=== PATIENT | female | born 1985 | race Asian ===

== ENCOUNTER 2022-12-11 09:15 | Outpatient (CLI) | payer OTHER, SELFPAY | END 2022-12-11 09:16 | disposition home or self-care (01) | LOC: FBOREF 09:16 | PROVIDERS: PCP Family Medicine; Visit Provider Family Medicine | DX: R53.83 Other fatigue (principal); R35.1 Nocturia; E66.01 Morbid (severe) obesity due to excess calories | CPT/HCPCS: 81001; 84443 ==

== ENCOUNTER 2023-01-09 10:38 | Outpatient (CLI) | payer OTHER, SELFPAY | END 2023-01-09 10:39 | disposition home or self-care (01) | PROVIDERS: PCP Family Medicine; Visit Provider Family Medicine | DX: R11.2 Nausea with vomiting, unspecified (principal); R19.7 Diarrhea, unspecified | CPT/HCPCS: 80053; 85025 ==

== ENCOUNTER 2023-01-29 19:28 | Outpatient (CLI) | payer OTHER, SELFPAY ==
--- NOTE | 2023-02-05 12:15 | W.PM.SLEEP ---
Sleep Study Details Details Interpreting Provider: Yoan Date of Sleep Study: 01/29/23 Sleep Study Details: STUDY TYPE:? Home unattended ? BMI:? 65.2 ORDERING PROVIDER:? Mallika INDICATION:? Concerns about sleep apnea ? SLEEP SUMMARY:? 136 minutes monitored RESPIRATORY SUMMARY:? AHI is 89.5. There was minimal difference between supine and left lateral positions Low oxygen 70 51.6% of study oxygen less than 90% Snoring 41.5% PERIODIC LIMB MOVEMENTS OF SLEEP:? Not recorded during home study CARDIAC:? Range 59-1 awake, mean 77.5 beats per minute IMPRESSION:? Severe obstructive sleep apnea with severe hypo oxygenation RECOMMENDATION: In-lab titration study as this patient may well require advancement to bilevel pressure. If AutoSet CPAP is chosen, the patient should have an overnight oximetry once effective therapy is established to ensure there is no requirement for nighttime oxygen.
== END 2023-01-29 19:29 | disposition home or self-care (01) ==
LOC: SLEEP 19:30
PROVIDERS: PCP Family Medicine; Visit Provider Family Medicine
DX: G47.33 Obstructive sleep apnea (adult) (pediatric) (principal)
CPT/HCPCS: 95806

== ENCOUNTER 2023-06-04 09:48 | Outpatient (CLI) | payer OTHER, SELFPAY ==
--- OUTSIDE RECORDS SUMMARY | 2023-06-04 09:54 | XMS_ITS | Clinical Summary ---
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 Start after the high dose vitamin d is complete. 90 capsule 3 04/09/2017 Active sertraline (ZOLOFT) 100 mg tabletIndications:Mode rate single current episode of major depressive disorder (HC) Take 2 tablets by mouth once daily. 180 tablet 3 08/06/2017 Active NAPROXEN ORAL Take by mouth. Takes 1-2 times a day 0 Active ondansetron (ZOFRAN ODT) 8 mg disintegrating tabletIndications:Naus ea, vomiting, and diarrhea Place 1 tablet on the tongue every 8 hours if needed for Nausea/Vomiting . 1/2-1 tablet every 8 hours as needed for nausea/vomiting . 10 tablet 0 03/20/2019 Active diazePAM (VALIUM) 5 mg tabletIndications:Acut e left-sided low back pain without sciatica Take 1 tablet by mouth every 6 hours if needed for Muscle Spasm. 10 tablet 0 05/03/2019 Active ACETAMINOPHEN ORAL Take by mouth. 0 Ac tive rx albuterol HFA (PROVENTIL; VENTOLIN) (90 mcg each actuation) inhaler (ED [place] MED)Indications:Influe nza-like illness Inhale 2 Puffs by mouth 4 times daily. 1 canister 0 06/08/2019 Active Active Problems Problem Noted Date Diagnosed Date Major depressive disorder, recurrent, moderate 0 07/30/2016 Moderate single current epis ode of major depressive disorder 11/18/2015 Phlebitis 10/19/2014 Family history of breast cancer 11/02/2013 Vitamin D deficiency 06/10/2012 Tobacco dependence 06/02/2012 Obesity 06/02/2012 PMDD (premenstrual dysphoric disorder) 3 Acne 06/02/2012 DVT (deep venous thrombosis) Herniated nucleus pulposus, L5-S1, left Resolved Problems Problem Noted Date Diagnosed Date Resolved Date Anticoagulation monitoring, INR range 2-3 10/20/2014 05/26/2015 Immunizations Name Administration Dates Next Due Human Papilloma Virus Vaccine 06/02/2012, 011,10/18/2010 Pneumococcal Poly,23-Valent (Pneumovax) 06/02/19 13 Tdap 07/05/2009 Family History Medical History Relation Name Comments Hypertension Brother 4 teens Cancer-breast Maternal Aunt 1 Cancer Maternal Aunt 2 lung (smoker ) Cancer Maternal Grandmother lung (s moker) Hypertension Mother late 40s Relation Name Status Comments Brother 1 Alive Brother 2 Alive Brother 3 Alive Brother 4 Father Alive Maternal Aunt 1 Maternal Aunt 2 Maternal Grandmother Mother Alive Sister Alive Social History Tobacco Use Types Packs/Day Years Used Date Smoking Tobacco: Every Day Cigarettes 1 13 Smokeless Tobacco: Never Tobacco Cessation:Ready to Q uit: No; Counseling Given: Yes Alcohol Use Standard Drinks/Week Comments No 0 (1 standard drink = 0.6 oz pur e alcohol) PHQ-2 Answer Date Recorded PHQ-2 Score 2 06/24/2018 Social Connections Answer Date Recorded Frequency of Communication with Friends and Fami ly Not on file 04/22/2021 Financial Resource Strain Answer Date R ecorded Difficulty of Paying Living Expenses Not on file 04/22/2021 Difficulty of Paying Living Expenses Not on file 04/22/2021 Sex and Gender Information Value Date Recorded Sex Assigned at Not on file Gender Identity Not on file Sexual Orientation Not on file Obstetrics History Para Term AB IAB SAB Ectopic Multiple Livin g Live Births 1 1 1 1 1 Date Outcome GA Total Labor Labor/2nd/3rd Weight Sex Delivery Anes PTL Kelly A1 A5 Name Cl in 07/17 36w 0d 23h 00m/ 3.09 kg (6 lb 13 oz) M Vag Epidu ral Y Lyly ng Stephen h [facility] Delivery Location:[place], [place] Comments:System [facility]. Please review and update details. Last Filed Vital Signs Vital Sign Reading Time Taken Comments Blood Pressure 173/105 08/18/2021 7:12 PM CDT Pulse 93 08/18/2021 7:12 PM CDT Temperature 36.9 ??C (98.4 ??F) 08/18/2021 7:12 PM CD T Respiratory Rate 16 08/18/2021 7:12 PM CDT Oxygen Saturation 94% 08/18/2021 7:12 PM CDT Inhaled Oxygen Concentration - - Weight 146.1 kg (322 lb) 08/18/2021 7:12 PM CDT Height 154.9 cm (5' 1) 08/18/2021 7:12 PM CDT Body Mass Index 60.84 08/18/2021 7:12 PM CDT Plan of Treatment Health Maintenance Due Date Last Done Comments COVID-19 vaccine series (#1) 1987 Depression screening for age 12+ 08/06/2018 08/06/2017, 07/26/2017, 04/09/2017, Additional history exists BMI (ht and wt on same day) for age 18+ 02/21/2019 02/21/2018, 01/30/2018, 10/31/2017, Additional history exists Tetanus booster 07/06/2019 07/05/2009 Pap test for age 21-65 04/09/2020 04/09/2017, 2012 Influenza for age 9-49 12/21/2022 Tdap Completed 07/05/2009 HIV for age 15-65 Completed 06/02/2012 Hepatitis C screening for age 18-79 Completed 06/02/2012 Pneumococcal series for age 6-64 Aged Out 06/02/2012 No longer eligible based on patient's age to complete this topic Care Teams Senior [employer]er Relationship Specialty Start Date End Date Pradip Tena MD [address] [place] [address] PCP - General Family Practice 06/08/19
[2023-06-04 14:33] LABS: SARS PCR* Negative SARS-CoV-2 (Negative)
== END 2023-06-04 09:49 | disposition home or self-care (01) ==
PROVIDERS: PCP Family Medicine; Visit Provider Family Medicine
DX: R05.9 Cough, unspecified (principal)
CPT/HCPCS: 86769; 87635

== ENCOUNTER 2023-07-25 18:46 | Outpatient (CLI) | payer OTHER, SELFPAY ==
--- OUTSIDE RECORDS SUMMARY | 2023-07-31 17:42 | XMS_ITS | Clinical Summary ---
Author Name Unknown Organization [employer] [facility] Address [place], [place] [address] Care Team Providers Care Public Health Professor Name Role Phone Pradip Tena MD Primary Care Provider + Allergies Active Allergy Reactions Criticality Noted Date Comments Drospirenone-Ethinyl Estradiol Other - Describe In Comment Field 06/02/2012 Saw bright flashes of light Medications Medication Sig Dispensed Refills Start Date End Date Status omeprazole (PRILOSEC) 40 mg Delayed-Release capsule Take 40 mg by mouth once daily. Active naproxen (ALEVE) 220 mg tablet Take 440 mg by mouth once daily if needed for Pain (takes before work). Active albuterol-ipratropi um (DUONEB) (2.5-0.5 mg) in 3 mL NEBULIZATION solutionIndications :Bilateral pulmonary infiltrates Inhale 3 mL via a nebulizer 4 times daily if needed for Shortness of Breath 1st choice or Wheezing 1st choice. 90 mL 07/29/2023 Active benzonatate (TESSALON) 100 mg capsuleIndications: Bilateral pulmonary infiltrates Take 2 Capsules (200 mg) by mouth 3 times daily if needed for Cough. 20 Capsule 07/29/2023 Active guaiFENesin (MUCINEX) 600 mg Extended-Release tabletIndications:B ilateral pulmonary infiltrates Take 1 Tablet (600 mg) by mouth two times daily for 5 days. 10 Tablet 07/29/2023 4 Active nicotine 21 mg/24 hr (NICODERM; HABITROL) 21 mg/24 hr patchIndications:To bacco dependence Apply 1 Patch on dry, clean, hairless skin once daily if needed for Nicotine Craving. 30 Patch 07/29/2023 Active cefuroxime axetil (CEFTIN) 500 mg tabletIndications:B ilateral pulmonary infiltrates Take 1 Tablet (500 mg) by mouth two times daily for 5 days. 10 Tablet 07/29/2023 4 Active NebulizerIndication s:Bilateral pulmonary infiltrates,Hypoxia Nebulizer, disposable neb kit x 4, reuseable neb kit x 1, mask x 1, filters x 1. Frequency of use: daily; Medication: Duoneb, Length of need: 99 months 1 Each 07/29/2023 Active oxygen-air delivery systems (HOME OXYGEN)Indications: Hypoxia Oxygen for home use. Liters per minute: 3 per nasal cannula. Frequency of use: Nocturnal;. Length of need: 99 Months. 1 Each 07/29/2023 Active cholecalciferol (VITAMIN D) 1,000 unit capsuleIndications: Vitamin D deficiency Take 1 capsule by mouth once daily. Start after the high dose vitamin d is complete. 90 capsule 3 04/09/2017 4 Discontinue d(Reorder (E-cancel not sent)) sertraline (ZOLOFT) 100 mg tabletIndications:M oderate single current episode of major depressive disorder (HC) Take 2 tablets by mouth once daily. 180 tablet 3 08/06/2017 4 Discontinue d(*Patient states no longer taking) NAPROXEN ORAL Take by mouth. Takes 1-2 times a day 4 Discontinue d(Reorder (E-cancel not sent)) ondansetron (ZOFRAN ODT) 8 mg disintegrating tabletIndications:N ausea, vomiting, and diarrhea Place 1 tablet on the tongue every 8 hours if needed for Nausea/Vomiting . 1/2-1 tablet every 8 hours as needed for nausea/vomiting . 10 tablet 03/20/2019 4 Discontinue d(Reorder (E-cancel not sent)) diazePAM (VALIUM) 5 mg tabletIndications:A cute left-sided low back pain without sciatica Take 1 tablet by mouth every 6 hours if needed for Muscle Spasm. 10 tablet 05/03/2019 4 Discontinue d(Reorder (E-cancel not sent)) ACETAMINOPHEN ORAL Take by mouth. 02 4 Discontinue d(Reorder (E-cancel not sent)) rx albuterol HFA (PROVENTIL; VENTOLIN) (90 mcg each actuation) inhaler (ED DC MED)Indications:Inf luenza-like illness Inhale 2 Puffs by mouth 4 times daily. 1 canister 06/08/2019 4 Discontinue d(Reorder (E-cancel not sent)) Active Problems Problem Noted Date Diagnosed Date CAP (community acquired pneumonia) 07/25/2023 Hypoxia 07/25/2023 Obesity 07/25/2023 GERD (gastroesophageal reflux disease) 4 Chronic low back pain 07/25/2023 Major depressive disorder, recurrent, moderate 0 07/30/2016 Moderate single current epis ode of major depressive disorder 11/18/2015 Phlebitis 10/19/2014 Family history of breast cancer 11/02/2013 Vitamin D deficiency 06/10/2012 Tobacco dependence 06/02/2012 PMDD (premenstrual dysphoric disorder) 3 Acne 06/02/2012 DVT (deep venous thrombosis) Herniated nucleus pulposus, L5-S1, left Resolved Problems Problem Noted Date Diagnosed Date Resolved Date Anticoagulation monitoring, INR range 2-3 10/20/2014 05/26/2015 Obesity 06/02/2012 07/25/2023 Encounters Date Type Department Care Team Description 07/26/2023 Travel 07/25/2023 7:22 PM CDT - 07/29/2023 4:00 PM CDT Hospital Encounter [address] [address] Og Vaughn PA Bowler, MD Cleopatra Gil Navid, DO Beardsley, Jonathan Philip, Juve Hernández DO Jezeski, Samantha F, NP Del Castillo, Jennifer Rose F, MD Bilateral pulmonary infiltrates (Primary Dx); Hypoxia; Tobacco dependence; Elevated C-reactive protein (CRP) Discharge Disposition: Home Self Care 07/25/2023 Travel from Last 3 Months Immunizations Name Administration Dates Next Due Human [...] Used Date Smoking Tobacco: Every Day Cigarettes 0.8 24 Smokeless Tobacco: Never Tobacco Cessation:Ready to Q uit: Not Asked; Counseling Given: Not Answered Alcohol Use Standard Drinks/Week Comments No 0 (1 standard drink = 0.6 oz pur e alcohol) PHQ-2 Answer Date Recorded PHQ-2 Score 2 06/24/2018 Social Connections Answer Date Recorded Frequency of Communication with Friends and Fami ly 0 07/26/2023 Financial Resource Strain Answer Date R ecorded Difficulty of Paying Living Expenses 3 07/26/2023 Difficulty of Paying Living Expenses Not on file 07/26/2023 Food Insecurity Answer Date Recorded Worried About Running Out of Food in the Last Ye ar 1 07/26/2023 Transportation Needs Answer Date Record ed Lack of Transportation (Medical) 1 07/26/2023 Housing Stability Answer Date Recorded Unable to Pay for Housing in the Last Year 1 07/26/2023 Sex and Gender Information Value Date Recorded [...] Lyly ng Stephen h [facility] Delivery Location:[place], [place] Comments:System [employer]. Please review and update details. Last Filed Vital Signs Vital Sign Reading Time Taken Comments Blood Pressure 127/79 07/29/2023 5:37 AM CDT Pulse 70 07/29/2023 5:37 AM CDT Temperature 36.6 ??C (97.8 ??F) 07/29/2023 5:37 AM CD T Respiratory Rate 16 07/29/2023 1:38 PM CDT Oxygen Saturation 93% 07/29/2023 1:38 PM CDT Inhaled Oxygen Concentration - - Weight 162.4 kg (358 lb) 07/25/2023 11:59 PM CDT Height 154.9 cm (5' 1) 07/25/2023 7:24 PM CDT Body Mass Index 67.64 07/25/2023 7:24 PM CDT Plan of Treatment Health Maintenance Due Date Last Done Comments Pneumococcal series for age 6-64 (2 of 2 - PCV) 06/02/2013 06/02/2012 Depression screening for age 12+ 08/06/2018 08/06/2017, 07/26/2017, 04/09/2017, Additional history exists BMI (ht and wt on same day) for age 18+ 02/21/2019 02/21/2018, 01/30/2018, 10/31/2017, Additional history exists Tetanus booster 07/06/2019 07/05/2009 Pap test for age 21-65 04/09/2020 04/09/2017, 2012 COVID-19 vaccine series ( season) 2022 Influenza for age 9-49 12/22/2023 Tdap Completed 07/05/2009 HIV for age 15-65 Completed 06/02/2012 Hepatitis C screening for ag e 18-79 Completed 06/02/2012 Procedures Procedure Name Priority Date/Time Associated Diagnosis Comments SCAN CORRESP-LABORATORY RESULTS 07/30/2023 12:24 PM CDT SCAN CORRESP-IMAGING 07/30/2023 12:24 PM CDT CREATININE Early AM 07/29/2023 5:54 AM CDT MAGNESIUM Early AM 07/29/2023 5:54 AM CDT SODIUM Early AM 07/29/2023 5:54 AM CDT POTASSIUM Early AM 07/29/2023 5:54 AM CDT C-REACTIVE PROTEIN Early AM 07/29/2023 5: 54 AM CDT C-REACTIVE PROTEIN Early AM 07/28/2023 6: 16 AM CDT WHITE BLOOD COUNT Early AM 07/28/2023 6:1 6 AM CDT SODIUM Early AM 07/28/2023 6:16 AM CDT MAGNESIUM Early AM 07/28/2023 6:16 AM CDT POTASSIUM Early AM 07/28/2023 6:16 AM CDT WHITE BLOOD COUNT Early AM 07/27/2023 7:0 3 AM CDT C-REACTIVE PROTEIN Early AM 07/27/2023 7: 03 AM CDT MAGNESIUM Early AM 07/27/2023 7:03 AM CDT SODIUM Early AM 07/27/2023 7:03 AM CDT POTASSIUM Early AM 07/27/2023 7:03 AM CDT CREATININE Early AM 07/27/2023 7:03 AM CDT BLOOD GAS,VENOUS Early AM 07/27/2023 7:03 AM CDT LEGIONELLA AND PNEUMOCOCCAL URINE ANTIGEN Today 07/26/2023 4:22 PM CDT PLATELET COUNT Early AM 07/26/2023 6:29 AM CDT HEMOGLOBIN Early AM 07/26/2023 6:29 AM CDT SCAN CORRESP-LABORATORY RESULTS 07/26/2023 5:03 AM CDT SCAN CORRESP-IMAGING 07/26/2023 5:[address] CHEST PE STUDY STAT 07/25/2023 9:3 4 PM CDT SODIUM GIACOMO 07/25/2023 9:04 PM CDT MAGNESIUM GIACOMO 07/25/2023 9:04 PM CDT POTASSIUM GIACOMO 07/25/2023 9:04 PM CDT CREATININE GIACOMO 07/25/2023 9:04 PM CDT HEPATIC FUNCTION PANEL STAT 9:04 PM CDT PROCALCITONIN STAT 07/25/2023 9:04 PM CDT C-REACTIVE PROTEIN STAT 07/25/2023 9: 04 PM CDT UA W/ SEDIMENT EXAM REFLEXED PER CRITERIA STAT 07/25/2023 8:11 PM CDT COVID-19 MOLECULAR STAT 07/25/2023 7: 57 PM CDT INFLUENZA A/B PCR STAT 07/25/2023 7:5 7 PM CDT LEAD RAMP AGENT THIN PREP PAP SCREEN IMAGED Routine 04/09/2017 5:04 PM WHEEL GRINDER Screening for malignant neoplasm of cervix ANTI HIV 1/2 Routine 06/02/2012 9:58 AM WHEEL GRINDER Screening for STD (sexually transmitted disease) ANTI HCV Routine 06/02/2012 9:58 AM WHEEL GRINDER Screening for STD (sexually transmitted disease) from Last 3 Months or Most Recently Relevant to Health Maintenance Results * SCAN CORRESP-LABORATORY RESULTS (07/30/2023 12:24 PM CDT) Only the most recent of2 resultswithin the time period is included. Narrative 07/30/2023 12:24 PM CDT Ordered by an unspecified provider. Other Clinical Staff OTHER * SCAN CORRESP-IMAGING (07/30/2023 12:24 PM CDT) Only the most recent of2 resultswithin the time period is included. Anatomical Region Laterality Modality Other Narrative 07/30/2023 12:24 PM CDT Ordered by an unspecified provider. Other Clinical Staff OTHER * SODIUM (07/29/2023 5:54 AM CDT) Only the most recent of4 resultswithin the time period is included. SODIUM 141 136 - 145 mmol/L 07/29/2023 6:43 AM CDT [facility] Blood BLOOD SPECIMEN / Unknown Venipuncture / Unknown 07/29/2023 5:54 AM CDT 07/29/2023 6:17 AM CDT Karey Vinson NP CHEMISTRY Performing Organization Address [facility] Co de Phone Number [facility] [address] [place] [address] * POTASSIUM (07/29/2023 5:54 AM CDT) Only the most recent of4 resultswithin the time period is included. POTASSIUM 4.2 3.5 - 5.1 mmol/L 07/29/2023 6:43 AM CDT [facility] Blood BLOOD SPECIMEN / Unknown Venipuncture / Unknown 07/29/2023 5:54 AM CDT 07/29/2023 6:17 AM CDT Karey Vinson NP CHEMISTRY Performing Organization Address City/[facility]/ZIP Co de Phone Number [facility] [address] [place] [address] * CREATININE (07/29/2023 5:54 AM CDT) Only the most recent of3 resultswithin the time period is included. eGFR >90 >90 mL/min/1.7 3m2 07/29/2023 6:43 AM CDT [facility] Comment:As of 2021, eG FR is calculated by the CKD-EPI creatinine equation without race adjustment. ??eGFR can be influenced by muscle mass, exercise, and diet. ??The reported eGFR is an estimation only and is only applicable if the renal function is stable. CREATININE 0.57 0.50 - 0.90 mg/dL 07/29/2023 6:43 AM CDT [facility] Blood BLOOD SPECIMEN / Unknown Venipuncture / Unknown 07/29/2023 5:54 AM CDT 07/29/2023 6:17 AM CDT Karey Vinson NP CHEMISTRY Performing Organization Address City/[facility]/ZIP Co de Phone Number [facility] [address] [place] [address] * (ABNORMAL) C-REACTIVE PROTEIN (07/29/2023 5:54 AM CDT) Only the most recent of4 resultswithin the time period is included. C-REACTIVE PROTEIN 1.0(H) <0.5 mg/dL 07/29/2023 6:43 AM CDT [facility] Blood BLOOD SPECIMEN / Unknown Venipuncture / Unknown 07/29/2023 5:54 AM CDT 07/29/2023 6:17 AM CDT Karey Vinson NP CHEMISTRY [facility] [address] [place] [address] * MAGNESIUM (07/29/2023 5:54 AM CDT) Only the most recent of4 resultswithin the time period is included. MAGNESIUM 2.1 1.6 - 2.6 mg/dL 07/29/2023 6:47 AM CDT [facility] Blood BLOOD SPECIMEN / Unknown Venipuncture / Unknown 07/29/2023 5:54 AM CDT 07/29/2023 6:17 AM CDT Karey Vinson NP CHEMISTRY [facility] [address] [place] [address] * (ABNORMAL) WHITE BLOOD COUNT (07/28/2023 6:16 AM CDT) Only the most recent of2 resultswithin the time period is included. WHITE BLOOD COUNT 13.2(H) 4.5 - 11.0 thou/cu mm 07/28/2023 7:25 AM CDT [facility] Blood BLOOD SPECIMEN / Unknown Venipuncture / Unknown 07/28/2023 6:16 AM CDT 07/28/2023 7:17 AM CDT Karey Vinson NP HEMATOLOGY Performing Organization Address City/[facility]/ZIP Co de Phone Number [facility] [address] [place] [address] * (ABNORMAL) BLOOD GAS,VENOUS (07/27/2023 7:03 AM CDT) PH, VENOUS 7.33 7.32 - 7.43 07/27/2023 7:09 AM T [facility] PCO2, VENOUS 63(H) 41 - 51 mmHg 07/27/2023 7:09 AM [facility] PO2, VENOUS 68(H) 35 - 40 mmHg 07/27/2023 7:09 AM [facility] HCO3,VENOUS 33(H) 22 - 29 mmol/L 07/27/2023 7:09 AM [facility] BASE EXCESS, VENOUS, POCT 5.3(H) -2.0 - 3.0 07/27/2023 7:09 AM [facility] O2 SATURATION, VENOUS 92(H) 70 - 75 % 07/27/2023 7:09 AM [facility] PATIENT TEMPERATURE 37.0 Degrees C 07/27/2023 7:09 AM [facility] Blood BLOOD SPECIMEN / Unknown Venipuncture / Unknown 07/27/2023 7:03 AM CDT 07/27/2023 7:06 AM CDT Karey Vinson [employer] [employer] CHEMISTRY Performing Organization Address [facility]/ZIP Co de Phone Number [facility] [address] [place] [address] * LEGIONELLA AND PNEUMOCOCCAL URINE ANTIGEN (07/26/2023 4:22 PM CDT) STREP PNEUMO ANTIGEN Negative 07/27/2023 3:48 PM CDT [facility] Comment:Presumptive negative for pneumococcal pneumonia, suggesting no current or recent pneumococcal infection. Infection due to S. pneumoniae cannot be ruled out since the antigen present in the sample may be below the detection limit of the test. LEGIONELLA ANTIGEN Negative 07/27/2023 3:48 PM CDT [facility] Comment:Negative for L.pneum ophila serogroup 1 antigen, suggesting no recent or current infection. Infection due to Legionella cannot be ruled out since other serogroups and species may cause disease, antigen may not be present in urine in early infection, and the level of antigen present may be below the detection limit of the test. Low test sensitivity in patients with mild pneumonia. Urine URINE SPECIMEN / Unknown Non-Blood / Unknown 07/26/2023 4:22 PM CDT 07/26/2023 4:26 PM CDT Juve Villalobos DO MICROBIOLOGY Performing Organization Address City/[facility]/ZIP Co de Phone Number [facility] [address] [place] [address], * PLATELET COUNT (07/26/2023 6:29 AM CDT) PLATELET COUNT 270 140 - 440 thou/cu mm 07/26/2023 7:15 AM CDT [facility] MPV 9.3 6.5 - 11.0 fL 07/26/2023 7:15 AM CDT [facility] Blood BLOOD SPECIMEN / Unknown Venipuncture / Unknown 07/26/2023 6:29 AM CDT 07/26/2023 7:02 AM CDT [facility] HEMATOLOGY Performing Organization Address [facility] Co de Phone Number [facility] [address] [place] [address] * (ABNORMAL) HEMOGLOBIN (07/26/2023 6:29 AM CDT) HEMOGLOBIN 12.9 12.0 - 16.0 g/dL 07/26/2023 7:15 AM CDT [facility] MCV 74(L) 80 - 100 fL 07/26/2023 7:15 AM CDT [facility] Blood BLOOD SPECIMEN / Unknown Venipuncture / Unknown 07/26/2023 6:29 AM CDT 07/26/2023 7:02 AM CDT [facility] Performing Organization Address [facility] Co de Phone Number [facility] [address] [place] [address] * CT CHEST PE STUDY (07/25/2023 9:34 PM CDT) Anatomical Region Laterality Modality CHEST, THORAX, HEART Computed To mography 07/25/2023 10:1 0 PM CDT Impressions 07/25/2023 10:10 PM CDT 1. No pulmonary embolism. 2. Bilateral upper lobe pneumonia, worse on the left. Please note that all CT scans at this facility use dose modulation, iterative reconstruction, and/or weight-based dosing when appropriate to reduce radiation dose to as low as reasonably achievable. Dictated by Adama Molina MD @ 07/25/2023 10:10:18 PM (Electronically Signed) Narrative 07/25/2023 10:10 PM CDT For Patients: ??As a result of the Century Cures Act, medical imaging exams and procedure reports are released immediately into your electronic medical record. ??You may view this report before your referring provider. ??If you have questions, please contact your health care provider. INDICATION: Pulmonary embolism suspected. TECHNIQUE: CT chest PE was acquired with 100 cc Omnipaque 350 IV contrast. COMPARISON: None. FINDINGS: Heart and vasculature: Contrast opacification of the pulmonary arterial tree is adequate. No sign of pulmonary embolism. Heart size is normal. Thoracic aorta and pulmonary artery are normal in caliber. Lungs and pleura: Ground-glass infiltrates are present in the left upper lobe and to a lesser extent right upper lobe. No solid nodule or lobar consolidation. No pleural effusions, pleural thickening, or pneumothorax. Lymph nodes/mediastinum: No mediastinal, hilar, or axillary adenopathy. Chest wall: No masses. Upper abdomen: No acute or significant findings. Bones: Unremarkable for age. Procedure Note Adama Molina MD - 07/25/2023 For Patients: As a result of the Cures Act, medical imagingexams and procedure reports are released immediately into your electronicmedical record. You may view this report before your referring provider.If you have questions, please contact your health care provider. INDICATION: Pulmonary embolism suspected. TECHNIQUE: CT chest PE was acquired with 100 cc Omnipaque 350 IV contrast. COMPARISON: None. FINDINGS: Heart and vasculature: Contrast opacification of the pulmonary arterialtree is adequate. No sign of pulmonary embolism. Heart size is normal.Thoracic aorta and pulmonary artery are normal in caliber. Lungs and pleura: Ground-glass infiltrates are present in the left upperlobe and to a lesser extent right upper lobe. No solid nodule or lobarconsolidation. No pleural effusions, pleural thickening, or pneumothorax. Lymph nodes/mediastinum: No mediastinal, hilar, or axillary adenopathy. Chest wall: No masses. Upper abdomen: No acute or significant findings. Bones: Unremarkable for age. IMPRESSION: 1. No pulmonary embolism. 2. Bilateral upper lobe pneumonia, worse on the left. Please note that all CT scans at this facility use dose modulation,iterative reconstruction, and/or weight-based dosing when appropriate toreduce radiation dose to as low as reasonably achievable. Dictated by Adama Molina MD @ 07/25/2023 10:10:18 PM (Electronically Signed) Nayeli Carrillo PA Student CT * PROCALCITONIN (07/25/2023 9:04 PM CDT) [facility] Signature PROCALCITONIN 0.05 ng/ml 07/25/2023 9:43 PM CDT [facility] Blood BLOOD SPECIMEN / Unknown Butterfly / Unknown 07/25/2023 9:04 PM CDT 07/25/2023 9:[address] [facility] - 07/25/2023 9:43 PM CDT Procalcitonin for initial assessment of Lower Respiratory Tract Infection: Results Interpretation <0.10 ng/mL Antibiotic therapy strongly discoraged. ??Indicates absent of bacterial infection. * 0.10 - 0.25 ng/mL Antibiotic therapy discouraged. ??Bacterial infection unlikely. * 0.26 - 0.50 ng/mL Antibiotic therapy encouraged. ??Bacterial infection possible. >0.50 ng/mL Antibiotic therapy strongly encouraged. ??Suggestive of presence of bacterial infection. *Antibiotic therapy should be considered regardless of PCT result if the patient is clinically unstable, is at high risk for adverse outcome, has strong evidence of bacterial pathogen, or the clinical context indicates antibiotic therapy is warranted. ??If antibiotics are withheld, reassess if symptoms persist/worsen and/or repeat PCT measurement within 6-24 hours. ? In order to assess treatment success and to support a decision to discontinue antibiotic therapy, follow up samples should be tested once every 1-2 days, based upon physician discretion taking into account patient's evolution and progress. Procalcitonin for initial assessment of severe sepsis risk: Results Interpretation <0.5 ng/ml A PCT level below 0.5 ng/ml on the first day of ICU admission is associated with a low risk for progression to severe sepsis and/or septic shock. > 2.0 ng/mL A PCT level above 2.0 ng/mL on the first day of ICU admission is associated with a high risk for progression to severe sepsis and/or septic shock. Note: Concentrations < 0.5 ng/mL do not exclude an infection, on account of localized infections (without systemic signs) which can be associated with such low concentrations, or a systemic infection in its initial stages(< 6 hours). Furthermore, increased procalcitonin can occur without infection. PCT concentrations between 0.5 and 2.0 ng/mL should be interpreted taking into account the patient's history. It is recommended to retest PCT within 6-24 hours if any concentrations < 2 ng/mL are obtained. Nayeli CHIRINOS Student SEND OUTS Performing Organization Address [facility] Co de Phone Number [facility] [address] [place] [address] * (ABNORMAL) HEPATIC FUNCTION PANEL (07/25/2023 9:04 PM CDT) ALBUMIN 4.0 4.0 - 4.9 g/dL 07/25/2023 9:32 PM T [facility] PROTEIN,TOTAL 7.6 6.0 - 8.0 g/dL 07/25/2023 9:32 PM [facility] BILIRUBIN,TOTAL 0.4 0.0 - 1.2 mg/dL 07/25/2023 9:32 PM [facility] BILIRUBIN,DIRECT <0.2 0.0 - 0.3 mg/dL 07/25/2023 9:32 PM T [facility] BILIRUBIN,INDIRE CT 07/25/2023 9:32 PM [facility] Comment:Unable to calculate, Direct Bili <0.2 ALK PHOSPHATASE 52 35 - 104 IU/L 07/25/2023 9:32 PM [facility] ALT (SGPT) <5(L) 10 - 35 IU/L 07/25/2023 9:32 PM T [facility] AST (SGOT) 30 10 - 35 IU/L 07/25/2023 9:32 PM [facility] Blood BLOOD SPECIMEN / Unknown Butterfly / Unknown 07/25/2023 9:04 PM CDT 07/25/2023 9:07 PM CDT Nayeli CHIRINOS Student CHEMISTRY Performing Organization Address [facility] Co de Phone Number [facility] [address] [place] [address] * (ABNORMAL) UA W/ SEDIMENT EXAM REFLEXED PER CRITERIA (07/25/2023 8:11 PM CDT) COLOR Yellow Yellow Color 07/25/2023 8:17 PM [facility] CLARITY Clear Clear Clarity 07/25/2023 8:17 PM [facility] SPECIFIC GRAVITY,URINE 1.020 1.010, 1.015, 1.020, 1.025 07/25/2023 8:17 PM [facility] PH,URINE 6.0 6.0, 7.0, 8.0, 5.5, 6.5, 7.5, 8.5 07/25/2023 8:17 PM [facility] UROBILINOGEN, QUALITATIVE Increased(A) Normal EU/dl 07/25/2023 8:17 PM [facility] PROTEIN, URINE Trace(A) Negative mg/dL 07/25/2023 8:17 PM [facility] GLUCOSE, URINE Negative Negative mg/dL 07/25/2023 8:17 PM [facility] KETONES,URINE Trace(A) Negative mg/dL 07/25/2023 8:17 PM [facility] BILIRUBIN,URI NE Negative Negative 07/25/2023 8:17 PM [facility] OCCULT BLOOD,URINE Negative Negative 07/25/2023 8:17 PM [facility] NITRITE Negative Negative 07/25/2023 8:17 PM T [facility] LEUKOCYTE ESTERASE Negative Negative 07/25/2023 8:17 PM [facility] Urine URINE SPECIMEN / Unknown Non-Blood / Unknown 07/25/2023 8:11 PM CDT 07/25/2023 8:14 PM CDT Og CHIRINOS URINE [facility] [address] [place] [address] * COVID-19 MOLECULAR (07/25/2023 7:57 PM CDT) Pathologist [facility] [place] COVID 19 [place] MOLECULAR Not detected Not detected 07/25/2023 8:26 PM CDT [facility] TESTING LABORATORY [facility] 07/25/2023 8:26 PM CDT [facility] Comment:Specimen submitted t o [facility] Laboratory for testing. Other SPECIMEN FROM NASOPHARYNGEAL STRUCTURE / Unknown Non-Blood / Unknown 07/25/2023 7:57 PM CDT 07/25/2023 8:05 PM CDT Og CHIRINOS MICROBIOLOG Y Performing Organization Address City/[facility]/ZIP Co de Phone Number [facility] [address] [place] [address] * INFLUENZA A/B PCR (07/25/2023 7:57 PM CDT) [facility] INFLUENZA A PCR NOT Detected 07/25/2023 8:26 PM CDT [facility] INFLUENZA B PCR NOT Detected 07/25/2023 8:26 PM CDT [facility] Other SPECIMEN FROM NASOPHARYNGEAL STRUCTURE / Unknown Non-Blood / Unknown 07/25/2023 7:57 PM CDT 07/25/2023 8:05 PM CDT Og CHIRINOS MICROBIOLOG Y Performing Organization Address City/[facility]/ZIP Co de Phone Number [facility] [address] [place] [address] * LEAD RAMP AGENT THIN PREP PAP SCREEN IMAGED [[id number]] (04/09/2017 5:04 PM WHEEL GRINDER) [facility] Case Report Gynecologic Cytology Report ? Case: [id number] ? Authorizing Provider: ??Delaney Whitfield MD ??Collected: ? 04/09/2017 1704 ? Ordering Location: ? [facility] ?Received: ?04/09/2017 1704 ? Clinic ? First Screen: ?Joss Burrell ? Specimen: ?LEAD RAMP AGENT ThinPrep Vial Screening, Cervical ? 04/24/2017 1:41 PM [facility]-C ENTRAL LABORATORY INTERPRETATION/ RESULT NEGATIVE FOR INTRAEPITHELIAL LESION OR MALIGNANCY (NIL) (none) 04/24/2017 1:41 PM [facility] ENTRAL [facility]ORAT[facility] IMEN ADEQUACY Satisfactory for evaluation Endocervical component present 04/24/2017 1:41 PM [facility] ENTRAL LABORATORY HPV REQUEST HPV if ASCUS 04/24/2017 1:41 PM [facility] ENTRAL LABORATORY Date of LMP 03/27/2017 04/24/2017 1:41 PM [facility]-C ENTRAL LABORATORY Last Pap Date 201204/24/2017 1:41 PM [facility] ENTRAL LABORATORY Last Pap Result NIL 8 1:41 PM WHEEL GRINDER [facility] ENTRAL LABORATORY Abnormal Pap or [place] Bx in last 5 years No 04/24/2017 1:41 PM WHEEL GRINDER [facility] Menstrual Status Regular Periods 04/24/2017 1:41 PM WHEEL GRINDER [facility] [place] Bx Done Today No 04/24/2017 1:41 PM WHEEL GRINDER [facility] Additional Information None given 04/24/2017 1:41 PM WHEEL GRINDER [facility] Automated Review Successful 04/24/2017 1:41 PM WHEEL GRINDER [facility] Comment:Specimen processed s uccessfully by automated film recordist device, ThinPrep Imaging System, [employer] Note The pap test is a screening technique, not a diagnostic procedure. ??It is used primarily to screen for squamous cancers and precursor lesions. ??Published studies have shown that it is subject to both false negative and false positive results. ??The pap test should not be used as the sole means to diagnose or exclude pre-malignant and malignant lesions. Interpreted at [facility] (Central Lab, [facility], [facility], [facility], [facility], [facility], [facility]) 04/24/2017 1:41 PM WHEEL GRINDER [facility] Other (Cervical) Non-Blood / Unknown 04/09/2017 5:04 PM WHEEL GRINDER 04/09/2017 5:04 PM WHEEL GRINDER Delaney Whitfield MD PATHOLOGY/[facility] [address] [place] [address], * ANTI HCV (06/02/2012 9:58 AM WHEEL GRINDER) ANTI HCV Non-reacti ve [facility] Blood specimen (specimen) BLOOD SPECIMEN / Unknown 06/02/2012 9:58 AM WHEEL GRINDER 06/02/2012 9:37 AM WHEEL GRINDER Cam Pineda DO SEND OUTS [facility] [place]NAL ZIP [address] [address] [place] [address] * ANTI HIV 1/2 (06/02/2012 9:58 AM WHEEL GRINDER) ANTI HIV 1/2 Non-reacti ve [facility] Blood specimen (specimen) BLOOD SPECIMEN / Unknown 06/02/2012 9:58 AM WHEEL GRINDER 06/02/2012 9:37 AM WHEEL GRINDER Cam Pineda DO SEND OUTS [facility] [place]NAL ZIP [address] [address] [place] [address] from Last 3 Months or Most Recently Relevant to Health Maintenance Advance Directives * Full Code (Latest Code Status on File) Date Activated Date Inactivated Comments 07/25/2023 10:40 PM 07/29/2023 7:16 PM Question Answer Comments Code Status Discussion: Reviewed Preferences Care Teams Public Health Professor Relationship Specialty Start Date End Date Pradip Tena MD [address] [place] [address] PCP - General Family Practice 06/08/19
== END 2023-07-25 18:47 | disposition home or self-care (01) ==
LOC: AMB 07-31 17:40
PROVIDERS: PCP Family Medicine; Visit Provider Emergency Medicine
DX: R06.09 Other forms of dyspnea (principal)
CPT/HCPCS: A0425; A0429

== ENCOUNTER 2023-09-25 10:06 | Outpatient (CLI) | payer OTHER, SELFPAY ==
--- OUTSIDE RECORDS SUMMARY | 2023-09-25 10:09 | XMS_ITS | Clinical Summary ---
Author Organization [employer] Address [place], [place] [address] Care Team Providers Care Chha Name Role Phone Pradip Tena MD Primary [...] needed for Pain (takes before work). Active albuterol-ipratropiu m (DUONEB) (2.5-0.5 mg) in 3 mL NEBULIZATION solutionIndications: Bilateral pulmonary infiltrates Inhale 3 mL via a nebulizer 4 times daily if needed for Shortness of Breath 1st choice or Wheezing 1st choice. 90 mL 07/29/2023 Active benzonatate (TESSALON) 100 mg capsuleIndications:B ilateral pulmonary infiltrates Take 2 Capsules (200 mg) by mouth 3 times daily if needed for Cough. 20 Capsule 07/29/2023 Active nicotine 21 mg/24 hr (NICODERM; HABITROL) 21 mg/24 hr patchIndications:Tob acco dependence Apply 1 Patch on dry, clean, hairless skin once daily if needed for Nicotine Craving. 30 Patch 07/29/2023 Active NebulizerIndications :Bilateral pulmonary infiltrates,Hypoxia Nebulizer, disposable neb kit x 4, reuseable neb kit x 1, mask x 1, filters x 1. Frequency of use: daily; Medication: Duoneb, Length of need: 99 months 1 Each 07/29/2023 Active oxygen-air delivery systems (HOME OXYGEN)Indications:H ypoxia Oxygen for home use. Liters per minute: 3 per nasal cannula. Frequency of use: Nocturnal;. Length of need: 99 Months. 1 Each 07/29/2023 Active Active Problems Problem Noted Date Diagnosed Date CAP (community acquired pneumonia) 07/25/2023 Hypoxia 07/25/2023 Obesity 07/25/2023 GERD (gastroesophageal reflux disease) Chronic low back pain 07/25/2023 Major depressive [...] - 07/29/2023 4:00 PM CDT Hospital Encounter [address] [address] Og Vaughn PA Bowler, MD Cleopatra Gil Navid, DO Beardsley, Jonathan Philip, NP Cudak, Austin Christopher, DO Jezeski, Samantha F, NP Del Castillo, [...] Lyly ng Stephen h Phalo uka Delivery Location:[place] [facility] [place] Comments:System Genera eugenia. Please review and update [...] 21-65 04/09/2020 04/09/2017, 2012 COVID-19 vaccine series (2022- season) 2022 Influenza for age 9-49 12/22/2023 [...] PCR STAT 07/25/2023 7:5 7 PM CDT INDUSTRIAL ENGINEERING INTERN THIN PREP PAP SCREEN IMAGED Routine 04/09/2017 5:04 PM WIRELESS TECHNICIAN Screening for malignant neoplasm of cervix ANTI HIV 1/2 Routine 06/02/2012 9:58 AM WIRELESS TECHNICIAN Screening for STD (sexually transmitted disease) ANTI HCV Routine 06/02/2012 9:58 AM WIRELESS TECHNICIAN Screening for STD (sexually transmitted disease) from [...] - 145 mmol/L 07/29/2023 6:43 AM CDT [facility] Blood BLOOD SPECIMEN / Unknown Venipuncture / Unknown 07/29/2023 5:54 AM CDT 07/29/2023 6:17 AM CDT Karey Vinson NP CHEMISTRY Performing Organization Address [facility] Co de Phone Number [facility] [address] [place] [address] * POTASSIUM (07/29/2023 5:54 AM CDT) Only the most recent of4 resultswithin the time period is included. POTASSIUM 4.2 3.5 - 5.1 mmol/L 07/29/2023 6:43 AM CDT [facility] Blood BLOOD SPECIMEN / Unknown Venipuncture / Unknown 07/29/2023 5:54 AM CDT 07/29/2023 6:17 AM CDT Karey Vinson NP CHEMISTRY [facility] [address] [place] [address] * CREATININE (07/29/2023 5:54 AM CDT) Only the most recent of3 resultswithin the time period is included. eGFR >90 >90 mL/min/1.7 3m2 07/29/2023 6:43 AM CDT [facility] Comment:As of 2021, eG FR is calculated by the CKD-EPI creatinine equation without race adjustment. ??eGFR can be influenced by muscle mass, exercise, and diet. ??The reported eGFR is an estimation only and is only applicable if the renal function is stable. CREATININE 0.57 0.50 - 0.90 mg/dL 07/29/2023 6:43 AM CDT [facility] Blood BLOOD SPECIMEN / Unknown Venipuncture / Unknown 07/29/2023 5:54 AM CDT 07/29/2023 6:17 AM CDT Karey Vinson NP CHEMISTRY [facility] [address] [place] [address] * (ABNORMAL) C-REACTIVE PROTEIN (07/29/2023 5:54 AM CDT) Only the most recent of4 resultswithin the time period is included. C-REACTIVE PROTEIN 1.0(H) <0.5 mg/dL 07/29/2023 6:43 AM CDT [facility] Blood BLOOD SPECIMEN / Unknown Venipuncture / Unknown 07/29/2023 5:54 AM CDT 07/29/2023 6:17 AM CDT Karey Vinson NP CHEMISTRY [facility] [address] [place] [address] * MAGNESIUM (07/29/2023 5:54 AM CDT) Only the most recent of4 resultswithin the time period is included. MAGNESIUM 2.1 1.6 - 2.6 mg/dL 07/29/2023 6:47 AM CDT [facility] Blood BLOOD SPECIMEN / Unknown Venipuncture / Unknown 07/29/2023 5:54 AM CDT 07/29/2023 6:17 AM CDT Karey Vinson NP CHEMISTRY [facility] [address] [place] [address] * (ABNORMAL) WHITE BLOOD COUNT (07/28/2023 6:16 AM CDT) Only the most recent of2 resultswithin the time period is included. WHITE BLOOD COUNT 13.2(H) 4.5 - 11.0 thou/cu mm 07/28/2023 7:25 AM T [facility] Blood BLOOD SPECIMEN / Unknown Venipuncture / Unknown 07/28/2023 6:16 AM CDT 07/28/2023 7:17 AM CDT Karey Vinson NP HEMATOLOGY [facility] [address] [place] [address] * (ABNORMAL) BLOOD GAS,VENOUS (07/27/2023 7:03 AM CDT) PH, VENOUS 7.33 7.32 - 7.43 07/27/2023 7:09 AM T [facility] PCO2, VENOUS 63(H) 41 - 51 mmHg 07/27/2023 7:09 AM [facility] PO2, VENOUS 68(H) 35 - 40 mmHg 07/27/2023 7:09 AM [facility] HCO3,VENOUS 33(H) 22 - 29 mmol/L 07/27/2023 7:09 AM [facility] BASE EXCESS, VENOUS, POCT 5.3(H) -2.0 - 3.0 07/27/2023 7:09 AM [facility] O2 SATURATION, VENOUS 92(H) 70 - 75 % 07/27/2023 7:09 AM [facility] PATIENT TEMPERATURE 37.0 Degrees C 07/27/2023 7:09 AM [facility] Blood BLOOD SPECIMEN / Unknown Venipuncture / Unknown 07/27/2023 7:03 AM CDT 07/27/2023 7:06 AM CDT Karey Vinson NP CHEMISTRY [facility] [address] [place] [address] * LEGIONELLA AND PNEUMOCOCCAL URINE ANTIGEN (07/26/2023 4:22 PM CDT) STREP PNEUMO ANTIGEN Negative 07/27/2023 3:48 PM CDT [facility] Comment:Presumptive negative for pneumococcal pneumonia, suggesting no current or recent pneumococcal infection. Infection due to S. pneumoniae cannot be ruled out since the antigen present in the sample may be below the detection limit of the test. LEGIONELLA ANTIGEN Negative 07/27/2023 3:48 PM CDT [facility] Comment:Negative for L.pneum ophila serogroup 1 [...] Juve Villalobos DO MICROBIOLOGY Performing Organization Address City/[facility]/ZIP Co de Phone Number [facility] [address] [place] [id number], * PLATELET COUNT (07/26/2023 6:29 AM CDT) PLATELET COUNT 270 140 - 440 thou/cu mm 07/26/2023 7:15 AM CDT [facility] MPV 9.3 6.5 - 11.0 fL 07/26/2023 7:15 AM CDT [facility] Blood BLOOD SPECIMEN / Unknown Venipuncture / Unknown 07/26/2023 6:29 AM CDT 07/26/2023 7:02 AM CDT [facility] Performing Organization Address City/[facility]/ZIP Co de Phone Number [facility] [address] [place] [address] * (ABNORMAL) HEMOGLOBIN (07/26/2023 6:29 AM CDT) HEMOGLOBIN 12.9 12.0 - 16.0 g/dL 07/26/2023 7:15 AM CDT [facility] MCV 74(L) 80 - 100 fL 07/26/2023 7:15 AM CDT [facility] Blood BLOOD SPECIMEN / Unknown Venipuncture / Unknown 07/26/2023 6:29 AM CDT 07/26/2023 7:02 AM CDT [facility] Performing Organization Address [facility] Co de Phone Number [facility] [address] [place] [address] * CT CHEST PE STUDY (07/25/2023 9:34 [...] CT * PROCALCITONIN (07/25/2023 9:04 PM CDT) PROCALCITONIN 0.05 ng/ml 07/25/2023 9:43 PM T [facility] Blood BLOOD SPECIMEN / Unknown Butterfly / Unknown 07/25/2023 9:04 PM CDT 07/25/2023 9:[address] [facility] - 07/25/2023 9:43 PM CDT Procalcitonin [...] CHIRINOS Student SEND OUTS Performing Organization Address [facility]/ZIP Co de Phone Number [facility] [address] [place] [address] * (ABNORMAL) HEPATIC FUNCTION PANEL (07/25/2023 9:04 PM CDT) ALBUMIN 4.0 4.0 - 4.9 g/dL 07/25/2023 9:32 PM CDT [facility] PROTEIN,TOTAL 7.6 6.0 - 8.0 g/dL 07/25/2023 9:32 PM T [facility] BILIRUBIN,TOTAL 0.4 0.0 - 1.2 mg/dL 07/25/2023 9:32 PM [facility] BILIRUBIN,DIRECT <0.2 0.0 - 0.3 mg/dL 07/25/2023 9:32 PM T [facility] BILIRUBIN,INDIRE CT 07/25/2023 9:32 PM T [facility] Comment:Unable to calculate, Direct Bili <0.2 ALK PHOSPHATASE 52 35 - 104 IU/L 07/25/2023 9:32 PM [facility] ALT (SGPT) <5(L) 10 - 35 IU/L 07/25/2023 9:32 PM T [facility] AST (SGOT) 30 10 - 35 IU/L 07/25/2023 9:32 PM T [facility] Blood BLOOD SPECIMEN / Unknown Butterfly / Unknown 07/25/2023 9:04 PM CDT 07/25/2023 9:07 PM CDT Nayeli CHIRINOS Student CHEMISTRY Performing Organization Address [facility]/ZIP Co de Phone Number [facility] [address] [place] [address] * (ABNORMAL) UA W/ SEDIMENT EXAM REFLEXED PER CRITERIA (07/25/2023 8:11 PM CDT) COLOR Yellow Yellow Color 07/25/2023 8:17 PM T [facility] CLARITY Clear Clear Clarity 07/25/2023 8:17 PM T [facility] SPECIFIC GRAVITY,URINE 1.020 1.010, 1.015, 1.020, 1.025 07/25/2023 8:17 PM T [facility] PH,URINE 6.0 6.0, 7.0, 8.0, 5.5, 6.5, 7.5, 8.5 07/25/2023 8:17 PM T [facility] UROBILINOGEN, QUALITATIVE Increased(A) Normal EU/dl 07/25/2023 8:17 PM [facility] PROTEIN, URINE Trace(A) Negative mg/dL 07/25/2023 8:17 PM T [facility] GLUCOSE, URINE Negative Negative mg/dL 07/25/2023 8:17 PM [facility] KETONES,URINE Trace(A) Negative mg/dL 07/25/2023 8:17 PM T [facility] BILIRUBIN,URI NE Negative Negative 07/25/2023 8:17 PM [facility] OCCULT BLOOD,URINE Negative Negative 07/25/2023 8:17 PM [facility] NITRITE Negative Negative 07/25/2023 8:17 PM T [facility] LEUKOCYTE ESTERASE Negative Negative 07/25/2023 8:17 PM T [facility] Urine URINE SPECIMEN / Unknown Non-Blood / Unknown 07/25/2023 8:11 PM CDT 07/25/2023 8:14 PM CDT Og CHIRINOS URINE [facility] [address] [place] [address] * COVID-19 MOLECULAR (07/25/2023 7:57 PM CDT) COVID 19 [place] MOLECULAR Not detected Not detected 07/25/2023 8:26 PM CDT [facility] TESTING LABORATORY [facility] 07/25/2023 8:26 PM CDT [facility] Comment:Specimen submitted t o [facility] for testing. Other SPECIMEN FROM NASOPHARYNGEAL STRUCTURE / Unknown Non-Blood / Unknown 07/25/2023 7:57 PM CDT 07/25/2023 8:05 PM CDT Og CHIRINOS MICROBIOLOG Y Performing Organization Address [facility]/ZIP Co de Phone Number [facility] [address] [place], [place] [id number] * INFLUENZA A/B PCR (07/25/2023 7:57 PM CDT) [facility] INFLUENZA A PCR NOT Detected 07/25/2023 8:26 PM CDT [facility] INFLUENZA B PCR NOT Detected 07/25/2023 8:26 PM CDT [facility] Other SPECIMEN FROM NASOPHARYNGEAL STRUCTURE / Unknown Non-Blood / Unknown 07/25/2023 7:57 PM CDT 07/25/2023 8:05 PM CDT Og CHIRINOS MICROBIOLOG Y Performing Organization Address [facility]/ZIP Co de Phone Number [facility] [address] [place] [address] * INDUSTRIAL ENGINEERING INTERN THIN PREP PAP SCREEN IMAGED [[id number]] (04/09/2017 5:04 PM WIRELESS TECHNICIAN) [facility] Case Report Gynecologic Cytology Report ? Case: [id number] ? Authorizing Provider: ??Delaney Whitfield MD ??Collected: ? 04/09/2017 1704 ? Ordering Location: ? [facility] [employer] [place] ?Received: ?04/09/2017 1704 ? Clinic ? First Screen: ?Joss Burrell ? Specimen: ?INDUSTRIAL ENGINEERING INTERN ThinPrep Vial Screening, Cervical ? 04/24/2017 1:41 PM [facility]-C ENTRAL LABORATORY INTERPRETATION/ RESULT NEGATIVE FOR INTRAEPITHELIAL LESION OR MALIGNANCY (NIL) (none) 04/24/2017 1:41 PM [facility] IMEN ADEQUACY Satisfactory for evaluation Endocervical component present 04/24/2017 1:41 PM [facility] LABORAT[facility]-C ENTRAL LABORATORY HPV REQUEST HPV if ASCUS 04/24/2017 1:41 PM [facility] ENTRAL LABORATORY Date of LMP 03/27/2017 04/24/2017 1:41 PM [facility] ENTRAL LABORATORY Last Pap Date 201204/24/2017 1:41 PM [facility] Last Pap Result NIL 8 1:41 PM [facility] Abnormal Pap or [place] Bx in last 5 years No 04/24/2017 1:41 PM [facility] Menstrual Status Regular Periods 04/24/2017 1:41 PM WIRELESS TECHNICIAN [facility] [place] Bx Done Today No 04/24/2017 1:41 PM WIRELESS TECHNICIAN [facility] Additional Information None given 04/24/2017 1:41 PM [facility] Automated Review Successful 04/24/2017 1:41 PM [facility] Comment:Specimen processed s uccessfully by automated solid waste facility supervisor device, ThinPrep Imaging System, [employer] Note The pap test is a screening technique, not a diagnostic procedure. ??It is used primarily to screen for squamous cancers and precursor lesions. ??Published studies have shown that it is subject to both false negative and false positive results. ??The pap test should not be used as the sole means to diagnose or exclude pre-malignant and malignant lesions. Interpreted at [facility] ([facility], [facility], [facility], [facility], [facility], [facility], [facility]) 04/24/2017 1:41 PM WIRELESS TECHNICIAN [facility] Other (Cervical) Non-Blood / Unknown 04/09/2017 5:04 PM WIRELESS TECHNICIAN 04/09/2017 5:04 PM WIRELESS TECHNICIAN Delaney Whitfield MD PATHOLOGY/CYTOLO GY [facility] [address] [place] [address], * ANTI HCV (06/02/2012 9:58 AM WIRELESS TECHNICIAN) ANTI HCV Non-reacti ve [facility] Blood specimen (specimen) BLOOD SPECIMEN / Unknown 06/02/2012 9:58 AM WIRELESS TECHNICIAN 06/02/2012 9:37 AM WIRELESS TECHNICIAN Cam Pineda DO SEND OUTS [facility] INTERNAL ZIP [phone] [place] [address] * ANTI HIV 1/2 (06/02/2012 9:58 AM WIRELESS TECHNICIAN) ANTI HIV 1/2 Non-reacti ve [facility] Blood specimen (specimen) BLOOD SPECIMEN / Unknown 06/02/2012 9:58 AM WIRELESS TECHNICIAN 06/02/2012 9:37 AM WIRELESS TECHNICIAN Cam Pineda DO SEND OUTS [facility] INTERNAL ZIP [phone] [place] [address] from Last 3 Months or Most Recently Relevant to Health Maintenance Advance Directives * Full Code (Latest Code Status on File) Date Activated Date Inactivated Comments 07/25/2023 10:40 PM 07/29/2023 7:16 PM Question Answer Comments Code Status Discussion: Reviewed Preferences Care Teams Chha Relationship Specialty Start Date End Date Pradip Tena MD [address] [place] [address] PCP - General Family Practice 06/08/19
== END 2023-09-25 10:07 | disposition home or self-care (01) ==
LOC: RAD 10:07
PROVIDERS: PCP Family Medicine; Visit Provider Family Medicine
DX: R60.9 Edema, unspecified (principal)
CPT/HCPCS: 93306

== ENCOUNTER 2024-01-16 10:49 | Outpatient (CLI) | payer OTHER, SELFPAY ==
--- OUTSIDE RECORDS SUMMARY | 2024-01-16 10:55 | XMS_ITS | Clinical Summary ---
Author Organization [employer] [facility] [employer] [facility] Address [place], [place] [address] Care Team Providers Care Printing Roller Polisher Name Role Phone Pradip Tena MD Primary [...] needed for Pain (takes before work). Active oxygen-air delivery systems (HOME OXYGEN)Indications:H ypoxia Oxygen for home use. Liters per minute: 3 per nasal cannula. Frequency of use: Nocturnal;. Length of need: 99 Months. 1 Each 07/29/2023 Active escitalopram oxalate (LEXAPRO) 20 mg tablet Take 20 mg by mouth once daily. 01/07/2024 Active fluticasone propion-salmeteroL (ADVAIR) 250-50 mcg/Dose diskus inhaler Inhale 1 Puff by mouth two times daily. 01/07/2024 Active furosemide (LASIX) 20 mg tablet Take 20 mg by mouth once daily in the morning. 01/02/2024 Active traZODone (DESYREL) 100 mg tablet Take 100 mg by mouth at bedtime. 01/07/2024 Active apixaban (ELIQUIS) tablet in a dose packIndications:pulm onary thromboembolism Take by mouth as directed on starter pack. 74 Tablet 01/15/2024 Active albuterol-ipratropiu m (DUONEB) (2.5-0.5 mg) in 3 mL NEBULIZATION solutionIndications: Bilateral pulmonary infiltrates Inhale 3 mL via a nebulizer 4 times daily if needed for Shortness of Breath 1st choice or Wheezing 1st choice. 90 mL 07/29/2023 Discontinu ed(*Patien t states no longer taking) benzonatate (TESSALON) 100 mg capsuleIndications:B ilateral pulmonary infiltrates Take 2 Capsules (200 mg) by mouth 3 times daily if needed for Cough. 20 Capsule 07/29/2023 Discontinu ed(*Patien t states no longer taking) nicotine 21 mg/24 hr (NICODERM; HABITROL) 21 mg/24 hr patchIndications:Tob acco dependence Apply 1 Patch on dry, clean, hairless skin once daily if needed for Nicotine Craving. 30 Patch 07/29/2023 Discontinu ed(*Patien t states no longer taking) NebulizerIndications :Bilateral pulmonary infiltrates,Hypoxia Nebulizer, disposable neb kit x 4, reuseable neb kit x 1, mask x 1, filters x 1. Frequency of use: daily; Medication: Duoneb, Length of need: 99 months 1 Each 07/29/2023 Discontinu ed(*Patien t states no longer taking) Active Problems Problem Noted Date Diagnosed Date Acute pulmonary embolism without acute cor pulmo nale 01/14/2024 CAP (community acquired pneumonia) 07/25/2023 Hypoxia 07/25/2023 [...] Encounters Date Type Department Care Team Description 01/14/2024 1:20 PM CDT - 01/15/2024 11:35 AM CDT Emergency [facility] [address] [place] [address] Dalia Duran, ASHLEY Roman, Sergio Humphrey, Evelyn Villeda MD Pain of left calf (Primary Dx); Pulmonary embolism, unspecified chronicity, unspecified pulmonary embolism type, unspecified whether acute cor pulmonale present (HC) Discharge Disposition: Home Self Care 01/14/2024 Travel from Last 3 Months Immunizations Name [...] Outcome GA Total Labor Labor/2nd/3rd Weight Sex Type Anes PTL Kelly A1 A5 Name Clin 2008 36w 0d 23h 00m/ 3.09 kg (6 lb 13 oz) M Vag Epidur al Y Livin g Rey king Delivery Location:[place], [place] Comments:System [employer]ug[employer]. Please review and update details. Last Filed Vital Signs Vital Sign Reading Time Taken Comments Blood Pressure 114/54 01/15/2024 7:45 AM CDT Pulse 81 01/15/2024 8:01 AM CDT Temperature 36.8 ??C (98.3 ??F) 01/15/2024 7:45 AM CD T Respiratory Rate 18 01/15/2024 7:45 AM CDT Oxygen Saturation 88% 01/15/2024 8:10 AM CDT Inhaled Oxygen Concentration - - Weight 167.7 kg (369 lb 12.8 oz) 01/15/2024 6:17 AM CDT Height 154.9 cm (5' 1) 01/14/2024 12:5 6 PM CDT Body Mass Index 69.87 01/14/2024 12:56 PM CDT Plan of Treatment Health Maintenance [...] 04/09/2017, 2012 COVID-19 vaccine series ( season) 2023 Influenza for age 9-49 12/22/2023 Tdap Completed 07/05/2009 HIV for age 15-65 Completed 06/02/2012 Hepatitis C screening for ag e 18-79 Completed 06/02/2012 Procedures Procedure Name Priority Date/Time Associated Diagnosis Comments SCAN-CARDIAC STRIP 01/15/2024 8: 35 AM CDT CREATININE Early AM 01/15/2024 5:58 AM CDT POTASSIUM Early AM 01/15/2024 5:58 AM CDT SODIUM Early AM 01/15/2024 5:58 AM CDT SCAN-CARDIAC STRIP 01/14/2024 9: [address] CHEST PE STUDY STAT 01/14/2024 3:5 5 PM CDT US VENOUS LOWER EXTREMITY LEFT STAT 01/14/2024 3:11 PM CDT APTT GIACOMO 01/14/2024 1:50 PM CDT CBC W PLT NO DIFF STAT 01/14/2024 1:5 0 PM CDT ,SERUM STAT 01/14/2024 1:50 PM CDT BASIC METABOLIC PANEL STAT 01/14/2024 1:50 PM CDT D-DIMER,QUANTITATIV E STAT 01/14/2024 1:50 PM CDT UNISAW OPERATOR THIN PREP PAP SCREEN IMAGED Routine 04/09/2017 5:04 PM [facility] Screening for malignant neoplasm of cervix ANTI HIV 1/2 Routine 06/02/2012 9:58 AM [facility] Screening for STD (sexually transmitted disease) ANTI HCV Routine 06/02/2012 9:58 AM [facility] Screening for STD (sexually transmitted disease) from Last 3 Months or Most Recently Relevant to Health Maintenance Results * SCAN-CARDIAC STRIP (01/15/2024 8:35 AM CDT) Scanner OTHER * SODIUM (01/15/2024 5:58 AM CDT) SODIUM 136 136 - 145 mmol/L 01/15/2024 7:04 AM CDT [facility] Blood BLOOD SPECIMEN / Unknown Venipuncture / Unknown 01/15/2024 5:58 AM CDT 01/15/2024 6:37 AM CDT Sergio Roman CLEANER ASSISTANT CHEMISTRY [facility] [address] [place] [address] * POTASSIUM (01/15/2024 5:58 AM CDT) Pathologist [facility] POTASSIUM 4.2 3.5 - 5.1 mmol/L 01/15/2024 7:04 AM CDT [facility] Blood BLOOD SPECIMEN / Unknown Venipuncture / Unknown 01/15/2024 5:58 AM CDT 01/15/2024 6:37 AM CDT Sergio Roman CLEANER ASSISTANT CHEMISTRY Performing Organization Address City/[facility] [[email or web address]] de Phone Number [facility] [address] [place] [address] * CREATININE (01/15/2024 5:58 AM CDT) Pathologist [facility] eGFR >90 >90 mL/min/1.7 3m2 01/15/2024 7:04 AM CDT [facility] Comment:As of 2021, eG FR is calculated by the CKD-EPI creatinine equation without race adjustment. ??eGFR can be influenced by muscle mass, exercise, and diet. ??The reported eGFR is an estimation only and is only applicable if the renal function is stable. CREATININE 0.72 0.50 - 0.90 mg/dL 01/15/2024 7:04 AM CDT [facility] Blood BLOOD SPECIMEN / Unknown Venipuncture / Unknown 01/15/2024 5:58 AM CDT 01/15/2024 6:37 AM CDT Sergio Roman CLEANER ASSISTANT CHEMISTRY [facility] [address] [place], [place] [id number] * SCAN-CARDIAC STRIP (01/14/2024 9:18 PM CDT) Scanner OTHER * CT CHEST PE STUDY (01/14/2024 3:55 PM CDT) Anatomical Region Laterality Modality CHEST, THORAX, HEART Computed To mography 01/14/2024 5:30 PM CDT Addenda Addendum by Chelsie Boles MD on 01/14/2024 9:31 PM CDT INDICATION: Pulmonary embolism suspected. TECHNIQUE: CT chest PE was acquired with 100 cc Omnipaque 350 IV contrast. COMPARISON: CT chest dated 07/25/2023. FINDINGS: Heart and vasculature: No cardiomegaly, no pericardial effusion. Pulmonary emboli extending from the right main pulmonary artery into the right upper lobe and right lower lobe lobar pulmonary arteries. Some of the right upper lobe segmental pulmonary arteries appear occluded, otherwise the right main pulmonary artery and right lower lobar pulmonary artery emboli are nonocclusive. No evidence of right heart strain. Lungs and pleura: Calcified granuloma in the right lower lobe. No evidence of pulmonary infarct. Thyroid and lower neck: No suspicious thyroid nodule. Mediastinum/jong: No suspicious lymphadenopathy. Calcified subcarinal lymph nodes. Chest wall: No axillary lymphadenopathy. Upper abdomen: No acute abnormality. Diffuse hepatic steatosis. Bones: Multilevel degenerative changes of the spine. No suspicious/aggressive focal osseous lesion. IMPRESSION: Pulmonary emboli extending from the right main pulmonary artery into the right upper and right lower lobar pulmonary arteries. No evidence of right heart strain. No evidence of pulmonary infarct. Please note that all CT scans at this facility use dose modulation, iterative reconstruction, and/or weight-based dosing when appropriate to reduce radiation dose to as low as reasonably achievable. Dictated by Chelsie Boles MD @ 01/14/2024 5:30:04 PM ----- ADDENDUM ----- Case discussed with Dr. Salinas at 17:35 on 01/14/2024. Dictated by Chelsie Boles MD @ Jan 14 2024 ??9:31PM (Electronically Signed) Impressions 01/14/2024 5:30 PM CDT Pulmonary emboli extending from the right main pulmonary artery into the right upper and right lower lobar pulmonary arteries. No evidence of right heart strain. No evidence of pulmonary infarct. Please note that all CT scans at this facility use dose modulation, iterative reconstruction, and/or weight-based dosing when appropriate to reduce radiation dose to as low as reasonably achievable. Dictated by Chelsie Boles MD @ 01/14/2024 5:30:04 PM (Electronically Signed) Narrative 01/14/2024 5:30 PM CDT For Patients: ??As a result of the Cures Act, medical imaging exams and procedure reports are released immediately into your electronic medical record. ??You may view this report before your referring provider. ??If you have questions, please contact your health care provider. INDICATION: Pulmonary embolism suspected. TECHNIQUE: CT chest PE was acquired with 100 cc Omnipaque 350 IV contrast. COMPARISON: CT chest dated 07/25/2023. FINDINGS: Heart and vasculature: No cardiomegaly, no pericardial effusion. Pulmonary emboli extending from the right main pulmonary artery into the right upper lobe and right lower lobe lobar pulmonary arteries. Some of the right upper lobe segmental pulmonary arteries appear occluded, otherwise the right main pulmonary artery and right lower lobar pulmonary artery emboli are nonocclusive. No evidence of right heart strain. Lungs and pleura: Calcified granuloma in the right lower lobe. No evidence of pulmonary infarct. Thyroid and lower neck: No suspicious thyroid nodule. Mediastinum/jong: No suspicious lymphadenopathy. Calcified subcarinal lymph nodes. Chest wall: No axillary lymphadenopathy. Upper abdomen: No acute abnormality. Diffuse hepatic steatosis. Bones: Multilevel degenerative changes of the spine. No suspicious/aggressive focal osseous lesion. Procedure Note Chelsie Boles MD - 01/14/2024 For Patients: As a result of the Cures Act, medical imagingexams and procedure reports are released immediately into your electronicmedical record. You may view this report before your referring provider.If you have questions, please contact your health care provider. INDICATION: Pulmonary embolism suspected. TECHNIQUE: CT chest PE was acquired with 100 cc Omnipaque 350 IV contrast. COMPARISON: CT chest dated 07/25/2023. FINDINGS: Heart and vasculature: No cardiomegaly, no pericardial effusion. Pulmonaryemboli extending from the right main pulmonary artery into the right upperlobe and right lower lobe lobar pulmonary arteries. Some of the rightupper lobe segmental pulmonary arteries appear occluded, otherwise theright main pulmonary artery and right lower lobar pulmonary artery emboliare nonocclusive. No evidence of right heart strain. Lungs and pleura: Calcified granuloma in the right lower lobe. No evidenceof pulmonary infarct. Thyroid and lower neck: No suspicious thyroid nodule. Mediastinum/jong: No suspicious lymphadenopathy. Calcified subcarinallymph nodes. Chest wall: No axillary lymphadenopathy. Upper abdomen: No acute abnormality. Diffuse hepatic steatosis. Bones: Multilevel degenerative changes of the spine. Nosuspicious/aggressive focal osseous lesion. IMPRESSION: Pulmonary emboli extending from the right main pulmonary artery into theright upper and right lower lobar pulmonary arteries. No evidence of rightheart strain. No evidence of pulmonary infarct. Please note that all CT scans at this facility use dose modulation,iterative reconstruction, and/or weight-based dosing when appropriate toreduce radiation dose to as low as reasonably achievable. Dictated by Chelsie Boles MD @ 01/14/2024 5:30:04 PM (Electronically Signed) Dalia Duran CLEANER ASSISTANT CT * US VENOUS LOWER EXTREMITY LEFT (01/14/2024 3:11 PM CDT) Anatomical Region Laterality Modality LEGS, LEG L, Abdomen Ultrasound 01/14/2024 3:29 PM CDT Impressions 01/14/2024 3:29 PM CDT Normal left lower extremity venous ultrasound, no sign of deep venous thrombosis. Dictated by Joss Murguia MD @ 01/14/2024 3:29:01 PM (Electronically Signed) Narrative 01/14/2024 3:29 PM CDT For Patients: ??As a result of the Century Cures Act, medical imaging exams and procedure reports are released immediately into your electronic medical record. ??You may view this report before your referring provider. ??If you have questions, please contact your health care provider. INDICATION: Leg swelling TECHNIQUE: Ultrasound venous duplex lower left extremity. ??Compression venous exam was performed using henson-scale, color Doppler, and spectral Doppler analysis. COMPARISON: None. FINDINGS: Sonographic imaging demonstrates the left common femoral, deep femoral, superficial femoral, popliteal, posterior tibial and greater saphenous and the contralateral right common femoral veins to be fully compressible with normal color Doppler blood flow. ?? Procedure Note Joss Murguia MD - 01/14/2024 For Patients: As a result of the Cures Act, medical imagingexams and procedure reports are released immediately into your electronicmedical record. You may view this report before your referring provider.If you have questions, please contact your health care provider. INDICATION: Leg swelling TECHNIQUE: Ultrasound venous duplex lower left extremity. Compression venous examwas performed using henson-scale, color Doppler, and spectral Doppleranalysis. COMPARISON: None. FINDINGS: Sonographic imaging demonstrates the left common femoral, deep femoral,superficial femoral, popliteal, posterior tibial and greater saphenous andthe contralateral right common femoral veins to be fully compressible withnormal color Doppler blood flow. IMPRESSION: Normal left lower extremity venous ultrasound, no sign of deep venousthrombosis. Dictated by Joss Murguia MD @ 01/14/2024 3:29:01 PM (Electronically Signed) Dalia Duran NP US * ,SERUM (01/14/2024 1:50 PM CDT) ,SERU M Negative Negative 01/14/2024 2:08 PM CDT [facility] Blood BLOOD SPECIMEN / Unknown Venipuncture / Unknown 01/14/2024 1:50 PM CDT 01/14/2024 1:54 PM CDT Dalia Duran NP CHEMISTRY [facility] [address] [place] [address] * (ABNORMAL) CBC W PLT NO DIFF (01/14/2024 1:50 PM CDT) WHITE BLOOD COUNT 11.5(H) 4.5 - 11.0 thou/cu mm 01/14/2024 1:58 PM CDT [facility] RED BLOOD COUNT 6.10(H) 4.00 - 5.20 mil/cu mm 01/14/2024 1:58 PM T [facility] HEMOGLOBIN 13.0 12.0 - 16.0 g/dL 01/14/2024 1:58 PM T [facility] HEMATOCRIT 42.1 33.0 - 51.0 % 01/14/2024 1:58 PM T [facility] MCV 69(L) 80 - 100 fL 01/14/2024 1:58 PM T [facility] MCH 21.3(L) 26.0 - 34.0 pg 01/14/2024 1:58 PM T [facility] MCHC 30.9(L) 32.0 - 36.0 g/dL 01/14/2024 1:58 PM [facility] RDW 22.1(H) 11.5 - 15.5 % 01/14/2024 1:58 PM [facility] PLATELET COUNT 293 140 - 440 thou/cu mm 01/14/2024 1:58 PM T [facility] MPV 9.1 6.5 - 11.0 fL 01/14/2024 1:58 PM T [facility] Blood BLOOD SPECIMEN / Unknown Venipuncture / Unknown 01/14/2024 1:50 PM CDT 01/14/2024 1:54 PM CDT Dalia Duran NP HEMATOLOGY [facility] [address] [place] [address] * APTT (01/14/2024 1:50 PM CDT) APTT 34 25 - 36 sec 01/14/2024 5:48 PM T [facility] Blood BLOOD SPECIMEN / Unknown Venipuncture / Unknown 01/14/2024 1:50 PM CDT 01/14/2024 1:[address] [facility] - 01/14/2024 5:48 PM CDT Therapeutic Range: 59-89 seconds Dalia Duran NP HEMATOLOGY Performing Organization Address [facility] Co de Phone Number [facility] [address] [place] [address] * (ABNORMAL) D-DIMER,QUANTITATIVE (01/14/2024 1:50 PM CDT) D-DIMER,QUANTI TATIVE 1.67(H) <=0.49 FEU mcg/mL 01/14/2024 2:03 PM CDT [facility] Blood BLOOD SPECIMEN / Unknown Venipuncture / Unknown 01/14/2024 1:50 PM CDT 01/14/2024 1:[address] [facility] - 01/14/2024 2:03 PM CDT The cut off value for exclusion of Deep Vein Thrombosis and / or Pulmonary Embolism is 0.50 FEU mcg/mL For patients greater than 50 years of age the upper limit is age dependent and was calculated with the formula: ?? (PATIENT AGE x 0.01) FEU mcg/mL = Upper limit of normal range Dalia Duran NP HEMATOLOGY Performing Organization Address [facility] [[email or web address]] de Phone Number [facility] [address] [place] [address] * (ABNORMAL) BASIC METABOLIC PANEL (01/14/2024 1:50 PM CDT) Pathologist [facility] SODIUM 136 136 - 145 mmol/L 01/14/2024 2:14 PM CDT [facility] POTASSIUM 3.8 3.5 - 5.1 mmol/L 01/14/2024 2:14 PM CDT [facility] CHLORIDE 101 98 - 107 mmol/L 01/14/2024 2:14 PM CDT [facility] CO2,TOTAL 24 22 - 29 mmol/L 01/14/2024 2:14 PM T [facility] ANION GAP 11 5 - 18 01/14/2024 2:14 PM T [facility] GLUCOSE 124(H) 70 - 99 mg/dL 01/14/2024 2:14 PM T [facility] CALCIUM 9.2 8.6 - 10.0 mg/dL 01/14/2024 2:14 PM [facility] BUN 12 6 - 20 mg/dL 01/14/2024 2:14 PM [facility] CREATININE 0.79 0.50 - 0.90 mg/dL 01/14/2024 2:14 PM [facility] BUN/CREAT RATIO 15 10 - 20 2:14 PM [facility] eGFR >90 >90 mL/min/1.7 3m2 01/14/2024 2:14 PM [facility] Comment:As of 2021, eG FR is calculated by the CKD-EPI creatinine equation without race adjustment. ??eGFR can be influenced by muscle mass, exercise, and diet. ??The reported eGFR is an estimation only and is only applicable if the renal function is stable. Blood BLOOD SPECIMEN / Unknown Venipuncture / Unknown 01/14/2024 1:50 PM CDT 01/14/2024 1:54 PM CDT Dalia Duran NP CHEMISTRY [facility] [address] [place] [address] * UNISAW OPERATOR THIN PREP PAP SCREEN IMAGED [[id number]] (04/09/2017 5:04 PM [facility]) Case Report Gynecologic Cytology Report ? Case: [id number] ? Authorizing Provider: ??Delaney Whitfield MD ??Collected: ? 04/09/2017 1704 ? Ordering Location: ? [facility] [place] ?Received: ?04/09/2017 1704 ? Clinic ? First Screen: ?Joss Burrell ? Specimen: ?UNISAW OPERATOR ThinPrep Vial Screening, Cervical ? 04/24/2017 1:41 PM [facility] ENTRAL LABORATORY INTERPRETATION/ RESULT NEGATIVE FOR INTRAEPITHELIAL LESION OR MALIGNANCY (NIL) (none) 04/24/2017 1:41 PM [facility] [employer]-[facility] ENTRAL LABORATORY IMEN ADEQUACY Satisfactory for evaluation Endocervical component present 04/24/2017 1:41 PM [facility] [employer] ENTRAL LABORATORY HPV REQUEST HPV if ASCUS 04/24/2017 1:41 PM [facility] EN[facility]AL LABORATORY Date of LMP 03/27/2017 04/24/2017 1:41 PM [facility] ENTRAL LABORATORY Last Pap Date 201204/24/2017 1:41 PM [facility] Last Pap Result NIL 8 1:41 PM [facility] Abnormal Pap or [place] Bx in last 5 years No 04/24/2017 1:41 PM [facility] Menstrual Status Regular Periods 04/24/2017 1:41 PM [facility] [place] Bx Done Today No 04/24/2017 1:41 PM [facility] Additional Information None given 04/24/2017 1:41 PM [facility] Automated Review Successful 04/24/2017 1:41 PM [facility] Comment:Specimen processed s uccessfully by automated cheese sprayer device, [employer], [employer] Note The pap test is a screening technique, not a diagnostic procedure. ??It is used primarily to screen for squamous cancers and precursor lesions. ??Published studies have shown that it is subject to both false negative and false positive results. ??The pap test should not be used as the sole means to diagnose or exclude pre-malignant and malignant lesions. Interpreted at [facility] ([facility], [facility], [facility], [facility], [facility], , [facility]) 04/24/2017 1:41 PM [facility] Other (Cervical) Non-Blood / Unknown 04/09/2017 5:04 PM [facility] 04/09/2017 5:04 PM [employer] [facility] [facility] Delaney Whitfield MD PATHOLOGY/[facility] [address] [place] [address], * ANTI HCV (06/02/2012 9:58 AM [facility]) ANTI HCV Non-reacti ve [facility] Blood specimen (specimen) BLOOD SPECIMEN / Unknown 06/02/2012 9:58 AM [facility] 06/02/2012 9:37 AM [facility] aCm Pineda DO SEND OUTS [facility] INTERNAL ZIP [phone] [place] [address] * ANTI HIV 1/2 (06/02/2012 9:58 AM [facility]) ANTI HIV 1/2 Non-reacti ve [facility] Blood specimen (specimen) BLOOD SPECIMEN / Unknown 06/02/2012 9:58 AM [facility] 06/02/2012 9:37 AM [facility] Cam Arvin Pineda DO SEND OUTS [facility] [place]NAL ZIP [phone] [place] [address] from Last 3 Months or Most Recently Relevant to Health Maintenance Advance Directives * Full Code (Latest Code Status on File) Date Activated Date Inactivated Comments 01/14/2024 8:15 PM 01/15/2024 1:40 PM Question Answer Comments Code Status Discussion: Reviewed Preferences * Full Code Date Activated Date Inactivated Comments 07/25/2023 10:40 PM 07/29/2023 7:16 PM Question Answer Comments Code Status Discussion: Reviewed Preferences Care Teams Printing Roller Polisher Relationship Specialty Start Date End Date Pradip Tena MD [address] [place] [address] PCP - General Family Practice 06/08/19
== END 2024-01-16 10:50 | disposition home or self-care (01) ==
PROVIDERS: PCP Family Medicine; Visit Provider Family Medicine
DX: I26.99 Other pulmonary embolism without acute cor pulmonale (principal)
CPT/HCPCS: 81241; 85300; 85301; 85302; 85306; 85520; 85525; 85598; 85610; 85613; 85670; 85730

== ENCOUNTER 2024-05-11 11:51 | Outpatient (CLI) | payer OTHER, SELFPAY | END 2024-05-11 11:52 | disposition home or self-care (01) | PROVIDERS: PCP Family Medicine; Visit Provider Family Medicine | DX: E55.9 Vitamin D deficiency, unspecified (principal); R11.10 Vomiting, unspecified; E66.01 Morbid (severe) obesity due to excess calories; Z68.45 Body mass index [BMI] 70 or greater, adult | CPT/HCPCS: 80048; 83735 ==

== ENCOUNTER 2024-07-15 09:29 | Outpatient (CLI) | payer OTHER, SELFPAY ==
[2024-07-15 14:33] LABS: PCR FLU A Negative PCR FLU A (Negative); PCR FLU B Negative PCR FLU B (Negative); PCR RSV Negative PCR RSV (Negative); SARS PCR* Negative SARS-CoV-2 (Negative)
== END 2024-07-15 09:30 | disposition home or self-care (01) ==
PROVIDERS: PCP Family Medicine; Visit Provider Family Medicine
DX: R05.9 Cough, unspecified (principal)
CPT/HCPCS: 87631

== ENCOUNTER 2024-07-28 16:47 | Outpatient (CLI) | payer OTHER, SELFPAY | END 2024-07-28 16:48 | disposition home or self-care (01) | PROVIDERS: PCP Family Medicine; Visit Provider Family Medicine | DX: E55.9 Vitamin D deficiency, unspecified (principal); E66.01 Morbid (severe) obesity due to excess calories; R11.10 Vomiting, unspecified; D64.9 Anemia, unspecified | CPT/HCPCS: 80048; 80076; 82728; 85025 ==

== ENCOUNTER 2024-08-04 06:45 | Outpatient (CLI) | payer OTHER, SELFPAY ==
--- NOTE | 2024-08-04 07:00 | CRLHL7_ITS ---
For Patients: As a result of the Century Cures Act, medical imaging exams and procedure reports are released immediately into your electronic medical record. You may view this report before your referring provider. If you have questions, please contact your health care provider. CLINICAL HISTORY: Nausea and vomiting COMPARISON: none TECHNIQUE: Real time henson scale imaging and color Doppler analysis was performed of the abdomen. FINDINGS: The liver measures 23.0 cm and has diffusely increased echotexture. No intrahepatic mass. The spleen is of normal size. The visualized pancreas appears heterogeneous. The proximal abdominal aorta and IVC appear normal. There is no evidence of ascites. The gallbladder is of normal size and there is no evidence of sludge or stones within the gallbladder lumen. The gallbladder wall measures 2 mm in thickness. The common bile duct measures 5 mm in size within the chandu hepatis. The kidneys appear symmetric. The right kidney measures 12.7 cm in length and the left kidney measures 11.8 cm. There is no evidence of a renal calculus or hydronephrosis. IMPRESSION: Hepatomegaly with diffuse hepatic steatosis. Normal gallbladder. Dictated by Pradip Rothman MD @ 08/04/2024 3:12:12 PM (Electronically Signed)
== END 2024-08-04 06:46 | disposition home or self-care (01) ==
PROVIDERS: PCP Family Medicine; Visit Provider Family Medicine
DX: R11.2 Nausea with vomiting, unspecified (principal); K76.0 Fatty (change of) liver, not elsewhere classified
CPT/HCPCS: 76700